=== PATIENT | male | born 1960 | race Caucasian/White ===

== ENCOUNTER 2021-03-18 07:47 | Outpatient (CLI) | payer BC ==
[2021-03-18 09:40] LABS: Hemoglobin 13.3 g/dL (13.5-17.5); Mean Corpuscular HGB CONC 33.4 g/dL (32.0-36.0); Mean Corpuscular Hemoglobin 30.9 pg (27.0-33.0); Mean Corpuscular Volume 92.6 fl (81.2-95.1); Mean Platelet Volume 8.8 fl (7.4-10.4); Platelet Count 394 10x3/uL (150-450); RBC Distribution Width 14.1 % (11.5-14.5)
[2021-03-18 10:07] LABS: INR-International Normal Ratio 0.9; PTT 27.3 sec (22.0-33.0); Prothrombin Time 10.3 sec (9.5-12.1)
[2021-03-18 10:16] LABS: Anion Gap 13 mmol/L (10-20); BUN (Urea Nitrogen) 26 mg/dL (8.4-25.7); Calc. Creatinine Clearance 0 mL/min (70-130); Carbon Dioxide 24 mmol/L (22-29); Chloride 106 mmol/L (98-107); Potassium 5.1 mmol/L (3.5-5.1); Sodium 138 mmol/L (136-145)
[2021-03-18 10:17] LABS: Glucose 90 mg/dL (70-105)
[2021-03-18 11:34] LABS: Calcium 9.6 mg/dL (7.8-10.44)
[2021-03-18] MEDS ORDERED: HYDROcodone/Acetaminophen 7.5/325 mg Tablet PO PRN (15:11)
[2021-03-18] MEDS ORDERED: traMADol HCl 50 MG TAB PO PRN (15:11)
[2021-03-18] MEDS ORDERED: Acetaminophen 325 MG TAB PO PRN (15:11)
[2021-03-18] MEDS ORDERED: Acetaminophen/Codeine 30-300mg Tablet PO PRN (15:11)
[2021-03-18] MEDS ORDERED: Morphine 2 MG/ML VIAL SLOW IVP PRN (15:11)
[2021-03-18] MEDS ORDERED: tiZANidine HCl 4 MG TAB PO PRN (15:11)
[2021-03-18] MEDS ORDERED: CEFAZOLIN 2 GM in Premix Bag 1 BAG IVPB SCH (15:15)
[2021-03-18] MEDS ORDERED: Sodium Chloride 0.9% 1,000 ML IV SCH (15:15)
[2021-03-19 01:53] LABS: SARS-CoV-2 PCR by NAA Not Detected (NotDetected)
== END 2021-03-18 07:48 | disposition home or self-care (01) ==
LOC: LABBT 07:47
PROVIDERS: ATTEND Surgery
DX: Z01.818 Encounter for other preprocedural examination (principal); M51.16 Intervertebral disc disorders with radiculopathy, lumbar region; M21.372 Foot drop, left foot
CPT/HCPCS: 80048; 85027; 85610; 85730; 93005; 93010; U0003; U0005

== ENCOUNTER 2021-03-20 06:16 | Day surgery (SDC) | payer BC ==
[2021-03-19 09:42] VITALS: BMI 24.3
[2021-03-20] MEDS ORDERED: Thrombin 5000 UNITS/5 ML VIAL ONE (06:36)
[2021-03-20] MEDS ORDERED: Fentanyl 250 MCG/5 ML VIAL ONE (06:53)
[2021-03-20] MEDS ORDERED: Midazolam HCl 2 mg/2 ml Vial ONE (07:11)
[2021-03-20] MEDS ORDERED: Acetaminophen 500 MG TAB ONE (07:12)
[2021-03-20] MEDS ORDERED: Albuterol Sulfate HFA (OR ONLY) ONE (07:33)
[2021-03-20] MEDS ORDERED: Rocuronium Bromide 10 MG/ML (10ML VIAL) ONE (07:33)
[2021-03-20] MEDS ORDERED: Ondansetron PF 4 MG/2 ML Vial ONE (07:33)
[2021-03-20] MEDS ORDERED: Ketorolac Tromethamine 30 MG/ML VIAL ONE ×2 (07:33→10:48)
[2021-03-20] MEDS ORDERED: ePHEDrine Sulfate 50 MG/10 ML VIAL ONE (07:33)
[2021-03-20] MEDS ORDERED: Dexamethasone 20 MG/5 ML VIAL ONE (07:33)
[2021-03-20] MEDS ORDERED: PROPOFOL 200 MG/20 ML VIAL ONE (07:33)
[2021-03-20] MEDS ORDERED: Lidocaine 1% PF 5 ML VIAL ONE (07:33)
[2021-03-20] MEDS ORDERED: SUGAMMADEX SODIUM 200 MG/2 ML VIAL ONE (09:58)
[2021-03-20] MEDS ORDERED: HYDROmorphone 2 MG/ML VIAL ONE (10:44)
[2021-03-20] MEDS ORDERED: traMADol HCl 50 MG TAB PO PRN (11:20)
[2021-03-20] MEDS ORDERED: Acetaminophen 325 MG TAB PO PRN (11:20)
[2021-03-20] MEDS ORDERED: tiZANidine HCl 4 MG TAB PO PRN (11:20)
[2021-03-20] MEDS ORDERED: Morphine 2 MG/ML VIAL SLOW IVP PRN (11:20)
[2021-03-20] MEDS ORDERED: Acetaminophen/Codeine 30-300mg Tablet PO PRN (11:20)
[2021-03-20] MEDS ORDERED: Fentanyl 100 MCG/2 ML VIAL ONE ×2 (11:24→12:05)
[2021-03-20] MEDS ORDERED: Ondansetron HCl/PF 4 MG/2 ML Vial IVP PRN (14:56)
[2021-03-20] MEDS ORDERED: Promethazine HCl 25 MG/ML VIAL IM/IV PRN (14:56)
[2021-03-20] MEDS: CEFAZOLIN 2 GM in Premix Bag 1 BAG IVPB SCH ×2 (15:12→23:52)
[2021-03-20] MEDS: Sodium Chloride 0.9% 1,000 ML IV SCH (17:30)
[2021-03-20] MEDS: HYDROcodone/Acetaminophen 7.5/325 mg Tablet PO PRN (20:55)
[2021-03-20] MEDS ORDERED: Atorvastatin Calcium 20 MG TAB PO SCH (21:00)
[2021-03-20] MEDS ORDERED: Sulfameth/Trimethoprim DS 800-160mg TAB PO SCH (21:00)
[2021-03-20] MEDS: Fenofibrate Nanocrystallized 145 MG TAB PO SCH ×2 (23:49→23:55)
[2021-03-21] MEDS: Sodium Chloride 0.9% 1,000 ML IV SCH (02:34)
[2021-03-21] MEDS: HYDROcodone/Acetaminophen 7.5/325 mg Tablet PO PRN (06:43)
[2021-03-21] MEDS ORDERED: Losartan 25 MG TAB PO SCH (09:00)
[2021-03-21 12:52] VITALS: BP 108/65; TEMP 98
== END 2021-03-21 14:15 | disposition home or self-care (01) ==
LOC: SDC 06:16 → SJJU 11:27 → SDC 03-21 14:15
PROVIDERS: ATTEND Surgery
PROC: 01NB0ZZ Release Lumbar Nerve, Open Approach (ICD-10-PCS; principal; 2021-03-20)
DX: M48.061 Spinal stenosis, lumbar region without neurogenic claudication (principal); M51.16 Intervertebral disc disorders with radiculopathy, lumbar region; M21.372 Foot drop, left foot; I10 Essential (primary) hypertension; E78.5 Hyperlipidemia, unspecified; F17.210 Nicotine dependence, cigarettes, uncomplicated; Z79.1 Long term (current) use of non-steroidal anti-inflammatories (NSAID); Z79.899 Other long term (current) drug therapy; Z88.8 Allergy status to other drugs, medicaments and biological substances
CPT/HCPCS: 76000; J0690; J1100; J1170; J1885; J2250; J2270; J2405; J2704; J3010; J3370

== ENCOUNTER 2021-08-19 13:51 | Outpatient (CLI) | payer BC ==
[2021-08-19 15:55] LABS: Bilirubin Neg (Negative); Blood, Urine 250 (Negative); Clarity Cloudy (Clear); Glucose, Urine (Dipstick) Normal (Negative); Ketone, Urine Negative (Negative); Leukocyte Negative (Negative); Nitrite Negative (Negative); Protein, Urine (Dipstick) 15 mg/dl (Neg-Trace); Urobilinogen Normal mg/dL (Less than 2)
[2021-08-19 16:11] LABS: Anion Gap 15 mmol/L (10-20); BUN (Urea Nitrogen) 19 mg/dL (8.4-25.7); Calc. Creatinine Clearance 0 mL/min (70-130); Calcium 9.9 mg/dL (7.8-10.44); Carbon Dioxide 24 mmol/L (22-29); Chloride 106 mmol/L (98-107); Glucose 81 mg/dL (70-105); Potassium 4.8 mmol/L (3.5-5.1); Sodium 140 mmol/L (136-145)
[2021-08-19 16:24] LABS: RBC/HPF Greater than 50 HPF (0-3)
[2021-08-19 16:25] LABS: Bacteria/HPF None Seen HPF (None Seen); Sperm/HPF Rare HPF (None Seen); Squamous Epithelial 0-3 HPF (0-3); WBC/HPF 0-3 HPF (0-3)
[2021-08-20 11:24] LABS: SARS-CoV-2 PCR by NAA Not Detected (NotDetected)
== END 2021-08-19 13:52 | disposition home or self-care (01) ==
LOC: LABBT 13:51
PROVIDERS: ATTEND Urology
DX: Z01.818 Encounter for other preprocedural examination (principal); N20.0 Calculus of kidney; Z20.822 Contact with and (suspected) exposure to COVID-19
CPT/HCPCS: 80048; 81001; 87086; 93005; 93010; U0003; U0005

== ENCOUNTER 2021-08-22 10:08 | Day surgery (SDC) | payer BC ==
[2021-08-21 12:12] VITALS: BMI 25.1
[2021-08-22] MEDS ORDERED: Levofloxacin 500 mg/D5W 100 ml Premix Bag ONE (10:29)
[2021-08-22] MEDS ORDERED: Midazolam HCl 2 mg/2 ml Vial ONE (10:56)
[2021-08-22] MEDS ORDERED: Fentanyl 100 MCG/2 ML VIAL ONE (11:51)
[2021-08-22] MEDS ORDERED: Iothalamate Meglumine 60% 50 ML VIAL FS ONE (12:03)
[2021-08-22] MEDS ORDERED: PROPOFOL 200 MG/20 ML VIAL ONE (12:23)
[2021-08-22] MEDS ORDERED: Lidocaine 1% PF 5 ML VIAL ONE (12:23)
[2021-08-22] MEDS ORDERED: Dexamethasone 20 MG/5 ML VIAL ONE (12:23)
[2021-08-22] MEDS ORDERED: Ondansetron PF 4 MG/2 ML Vial ONE (12:23)
[2021-08-22] MEDS ORDERED: Oxybutynin 5 MG TAB ONE (13:19)
[2021-08-22] MEDS ORDERED: Phenazopyridine HCl 100 MG TAB ONE (13:19)
[2021-08-22] MEDS ORDERED: Ketorolac Tromethamine 30 MG/ML VIAL ONE (13:19)
== END 2021-08-22 14:40 | disposition home or self-care (01) ==
LOC: SDC 10:08
PROVIDERS: ATTEND Urology
PROC: 0TC78ZZ Extirpation of Matter from Left Ureter, Via Natural or Artificial Opening Endoscopic (ICD-10-PCS; principal; 2021-08-22)
PROC: 0T778DZ Dilation of Left Ureter with Intraluminal Device, Via Natural or Artificial Opening Endoscopic (ICD-10-PCS; principal; 2021-08-22)
DX: N13.2 Hydronephrosis with renal and ureteral calculous obstruction (principal); I10 Essential (primary) hypertension; Z79.899 Other long term (current) drug therapy; Z88.8 Allergy status to other drugs, medicaments and biological substances
CPT/HCPCS: 74420; 82365; 88300; C2617; J1100; J1885; J1956; J2250; J2405; J2704; J3010; Q9961-U8

== ENCOUNTER 2021-09-19 10:30 | Outpatient (CLI) | payer BC | END 2021-09-19 10:31 | disposition home or self-care (01) | LOC: BICULT 10:30 | PROVIDERS: ATTEND Urology | DX: N20.1 Calculus of ureter (principal) | CPT/HCPCS: 76770 ==